=== PATIENT | male | born 1985 | race Caucasian/White ===

== ENCOUNTER 2017-04-07 14:33 | Emergency (ER) | payer SELFPAY | END 2017-04-07 16:15 | disposition home or self-care (01) | LOC: D.ER 14:33 | DX: L50.0 Allergic urticaria (principal); R21 Rash and other nonspecific skin eruption ==

== ENCOUNTER 2017-04-09 04:42 | Emergency (ER) | payer SELFPAY | END 2017-04-09 05:58 | disposition home or self-care (01) | LOC: D.ER 04:42 | DX: T78.40XA Allergy, unspecified, initial encounter (principal); R21 Rash and other nonspecific skin eruption; F17.200 Nicotine dependence, unspecified, uncomplicated ==